=== PATIENT | male | born 2005 | race Two or more races ===

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

== ENCOUNTER 2024-08-23 13:41 | Emergency (ER) | payer OTHER, SELFPAY ==
[2024-08-23 13:45] VITALS: BP 125/80; PULSE 88; RESP 14; TEMP 36.5; O2SAT 99
--- NOTE | 2024-08-23 14:00 | DI.RAD_ITS ---
Exam(s) XR LUMBAR SPINE COMPLETE EXAM: XR LUMBAR SPINE COMPLETE CLINICAL HISTORY: back pain after, falling wrestling. TECHNIQUE: 2D digital imaging was performed of the lumbar spine. Five images were obtained. AP, la teral, right oblique, left oblique and L5-S1 spot views were obtained. COMPARISON: No exams were available for comparison FINDINGS: BONES: No fracture or destructive lesion. Vertebral bodies are unremarkable. No facet hypertrophy costa ntified. DISKS: Intervertebral disc spaces are maintained. ALIGNMENT: Lumbar spinal alignment is within normal limits. There is unilateral left spondylolysis at L5. No spondylolisthesis. SOFT TISSUE: Normal. IMPRESSION: No acute abnormality. DATA REPOSITORY: RADIATION DOSE DELIVERED:
[2024-08-23] MEDS: Acetaminophen 325 MG TAB 650 MG PO (15:16)
[2024-08-23] MEDS: Diph,Pertuss(Acell),Tet Vac/Pf 0.5 ML SYR IM (15:16)
--- NOTE | 2024-08-23 15:39 | ED.GENADUL_ITS ---
Discharge Plan Disposition Patient Disposition: Home Condition: Stable Discharge Details Clinical Impression: Lumbar contusion Primary Care Provider: None,None ED Provider: Rashida Awan Home Meds and New Rx's Prescriptions: New cyclobenzaprine 10 mg tablet 10 mg PO TID PRNQty: 10 0RF No Action No Known Home Meds Discharge Instructions Instructions: Low Back Pain (DC), Minor Contusion ED HPI General Date/Time Provider Initiated Documentation: 08/23/24 13:51 . HPI Narrative: 19-year-old male with back pain after wrestling incident. Flipped and landed on back yesterday. Pain worsened with movement and sitting. No strength or sensation changes, groin numbness, bowel/bladder changes, hematuria, abdominal pain, head injury, neck pain, or loss of consciousness. Related Data Home Medications ?Medication ?Instructions ?Recorded ?Confirmed Unknown [No Known Home Meds] 08/23/24 08/23/24 cyclobenzaprine 10 mg tablet 10 mg PO TID PRN #10 tabs 08/23/24 Previous Rx's ?Medication ?Instructions ?Recorded cyclobenzaprine 10 mg tablet 10 mg PO TID PRN #10 tabs 08/23/24 Allergies Allergy/AdvReac Type Severity Reaction Status Date / Time No Known Allergies Allergy Verified 08/23/24 13:48 General Stated Complaint: Nk/Back Pain OSCAR: 4 Exam Narrative Exam Narrative: General Appearance: Alert and oriented, no acute distress. Vital signs: Within normal limits. HEENT: Within normal limits. Respiratory: No respiratory distress. Back, Musculoskeletal: Small abrasion at L4-L5 with tenderness and mild swelling , no ecchymosis. No thoracic or cervical spine tenderness. Extremities: No additional trauma signs. Skin: Warm and dry, no rash. Neurological: DTRs intact bilaterally. Strength and sensation intact bi laterally. Negative Babinski. Other observations: No abdominal, CVA tenderness. Course Vital Signs Vital signs: Vital Signs Temperature 36.5 C 08/23/24 13:45 Pulse 88 08/23/24 13:45 Respiratory Rate 14 08/23/24 13:45 Blood Pressure 125/80 08/23/24 13:45 Pulse Oximetry 99 08/23/24 13:45 Temperature 36.5 C 08/23/24 13:45 Temperature Source Oral 08/23/24 13:45 Pulse 88 08/23/24 13:45 Respiratory Rate 14 08/23/24 13:45 Blood Pressure 125/80 08/23/24 13:45 Blood Pressure Position Sitting 08/23/24 13:45 Pulse Oximetry 99 08/23/24 13:45 Oxygen Delivery Method Room Air 08/23/24 13:45 Oxygen Flow Rate 0 08/23/24 13:45 Pain Level 6 08/23/24 13:45 Medical Decision Making X-ray of lumbar spine: no acute fracture. Initial Assessment: 19-year-old male with back pain after wrestling incident. Pain worsened with movement and sitting. No strength or sensation changes, groin numbness, bowel/bladder changes. Physical exam: small abrasion at L4-L5 with tenderness, mild swelling, no ecchymosis. DTRs intact bilaterally, no thoracic or cervical spine tenderness. Neurovascularly intact. ED Course: - X-ray of lumbar spine ordered. - Tetanus updated. - X-ray read by me: no acute fracture. - Patient encouraged to rest, take Motrin and Tylenol. - Return precautions reviewed. - Patient expressed understanding. - Neurovascularly intact. - Ambulatory, steady gait. - Discharged home. Final Assessment: Patient with back pain after wrestling incident. X-ray showed no acute fracture. Treatment included rest, Motrin, Tylenol, and tetanus update. Patient neurovascularly intact and ambulatory at discharge. Clinical Impression: - Back pain Disposition: - Discharge - Follow-Up: 1 week if symptoms persist. Quality:SDOH Health Related Social Needs: No Data to Display PFSH All Active Problems (Updated 08/23/24 @ 15:09 by OMAR Garcia) Lumbar contusion (Acute) Post-ictal state (Acute) Seizures (Acute) Medical History (Updated 08/23/24 @ 15:09 by OMAR Garcia) Seizure disorder Surgical History (Updated 11/24/20 @ 21:17 by eJssie Gu DO) History of appendectomy Social History Smoking/Tobacco Use Status: Never Smoking risk assessment performed?: Yes Alcohol Intake: current Alcohol Intake frequency: 3 or more drinks per day Alcohol type: beer Drug use: Daily Substance use type: marijuana PAWSS Have you Been Recently Intoxicated or Drunk Within the Last 30 days?: No Have you Ever Experienced Previous Episodes of Alcohol Withdrawal?: No Have you ever Experienced Withdrawal Seizures?: No Have you ever Experienced Delirium Tremens(DT)s?: No Have you ever undergone Alcohol Rehabilitation Treatment (i.e, inpt ot outpatient treatment programs)?: No Have you ever Experienced Blackouts?: No Have you ever Combined Alcohol with other Downers within the last 90 days?: No Have you ever Combined Alcohol with any other Substance of Abuse during the last 90 days?: No Positive Blood Alcohol level on Presentation? [PCS.BAL]: No Evidence of Increased Autonomic Activity (i.e. HR>120, tremor, sweating, agitation, nausea)?: No Result: 0
== END 2024-08-23 15:39 | disposition home or self-care (01) ==
PROVIDERS: Emergency Provider Physician Assistant
DX: S30.0XXA Contusion of lower back and pelvis, initial encounter (principal); Z23 Encounter for immunization; W08.XXXA Fall from other furniture, initial encounter; Y93.72 Activity, wrestling; Y92.018 Other place in single-family (private) house as the place of occurrence of the external cause
CPT/HCPCS: 90471; 90715; 99283; 72110